=== PATIENT | male | born 1945 | race Caucasian/White ===

== ENCOUNTER 2016-11-09 09:01 | Emergency (ER) | payer OTHER ==
[~2016-11-09] VITALS: Ht 172.7 cm; Wt 75.2 kg
[~2016-11-09 09:01] MED LIST: AMBIEN10 MG PO; ASPIR 8181 M1 PO; ASPIRIN E.C.81 M1 PO; Ambien PO; BENTYL10 MG PO; BUSPAR5 MG PO; CARDIZEM60 MG PO; COREG12.5 MG PO; COREG25 M1 PO; Coreg PO; DESYREL100 MG PO; FLAGYL500 MG PO; FUROSEMIDE20 MG PO; GLIMEPIRIDE2 MG PO; LISINOPRIL5 MG PO; LO-DOSE ASPIRIN81 M2 PO; NAPROXEN500 MG PO; OFEV150 MG PO; PANTOPRAZOLE SO40 MG PO; POTASSIUM CHLO10 ME4 PO; PRAVASTATIN SOD20 MG PO; PRAVASTATIN SOD40 MG PO; PREDNISONE5 MG PO; SYMBICORT; Symbicort 80-4.5 mcg IH; TRAZODONE HCL100 MG PO; TYLENOL REGULA325 MG PO; Tylenol Regular Stre PO; VALIUM2 MG PO; VANCOMYCIN100 MG/M1 IV; WARFARIN SODIUM3 MG PO
[2016-11-09] MEDS ORDERED: CARTIA XT120 MG PO (09:17)
[2016-11-09] MEDS ORDERED: WARFARIN SODIUM5 MG PO (09:18)
[2016-11-09 09:44] LABS: HEMATOCRIT 36.3 % (38.0-50.0); MCH 30.7 PG (29.0-34.0); MCHC 32.2 G/DL (30.0-36.0); MCV 95.3 FL (86-99); MEAN PLAT.VOLUME 9.1 uM^3 (9.0-12.4); PLATELET COUNT 135 K/uL (156-360); RBC DIS.WIDTH-CV 14.1 % (11.8-14.6); RBC DIS.WIDTH-SD 49.5 % (39-53); RED BLOOD COUNT 3.81 M/uL (4.00-5.50); WHITE BLOOD COUNT 3.9 K/uL (4.1-10.2)
[2016-11-09 09:54] LABS: CHLORIDE 105 mEq/L (99-109); POTASSIUM 4.2 mEq/L (3.7-5.4); SODIUM 136 mEq/L (136-147)
[2016-11-09 09:55] LABS: PROTHROMBIN TIME 46.1 (9.2-11.2); PTT 52.4 (25-32)
[2016-11-09 09:56] LABS: GLUCOSE 102 mg/dL (70-99)
[2016-11-09 09:58] LABS: ANION GAP 10 MEQ/L (2-14)
[2016-11-09 10:00] LABS: ALKALINE PHOSPHATASE 168 IU/L (3-129); GFR ESTIMATE (CALCULATED) > 59 mL/min/
[2016-11-09 10:01] LABS: UREA NITROGEN (BUN) 17 mg/dL (9-23)
[2016-11-09 10:03] LABS: LIPASE 23 U/L (1.0-51.0)
[2016-11-09 10:06] LABS: INTER. NORMALIZED RATIO 4.3
[2016-11-09 11:39] LABS: ADD MIUA? YES; BILIRUBIN NEGATIVE; BLOOD LARGE; COLOR YELLOW ((YELLOW)); GLUCOSE (STRIP) NEGATIVE; KETONES NEGATIVE; LEUKOCYTES SMALL; NITRITE NEGATIVE; PROTEIN (STRIP) 30; SPECIFIC GRAVITY 1.015 (1.000-1.030); UROBILINOGEN 0.2 MG/DL (0.2-1.0)
[2016-11-09 11:57] LABS: BACTERIA RARE /HPF; EPITHELIAL CELLS NONE SEEN /HPF; MUCUS TRACE /LPF; RED BLOOD CELLS TNTC /HPF (0-5); UCUL ADDED? YES; WHITE BLOOD CELLS TNTC /HPF (0-5)
[2016-11-09] MEDS ORDERED: ZOFRAN4 MG PO (13:02)
[2016-11-09] MEDS ORDERED: NORCO 5/3251 TABLET PO (13:02)
[2016-11-09] MEDS ORDERED: FLOMAX0.4 MG PO (13:02)
[2016-11-09] MEDS ORDERED: BACTRIM,SEPT1 TABLET PO (13:20)
[2016-11-09 13:33] VITALS: BP 133/71
== END 2016-11-09 13:34 | disposition home or self-care (01) ==
LOC: EME 09:01
PROVIDERS: Physician Assistant
DX: N20.1 Calculus of ureter (principal); N39.0 Urinary tract infection, site not specified; I48.91 Unspecified atrial fibrillation; Z91.19 Patient's noncompliance with other medical treatment and regimen; E11.9 Type 2 diabetes mellitus without complications; J44.9 Chronic obstructive pulmonary disease, unspecified; E78.5 Hyperlipidemia, unspecified; I10 Essential (primary) hypertension; Z87.442 Personal history of urinary calculi; Z79.82 Long term (current) use of aspirin; Z79.84 Long term (current) use of oral hypoglycemic drugs; Z87.891 Personal history of nicotine dependence
CPT/HCPCS: 74176; 80053; 81003; 83690; 85027; 85610; 85730; 87086 GA; 93005; 99281; 99285; J7030

== ENCOUNTER 2016-12-26 08:23 | Emergency (ER) | payer OTHER ==
[~2016-12-26] VITALS: Ht 172.7 cm; Wt 72.6 kg
[~2016-12-26 08:23] MED LIST changes: +BACTRIM,SEPT1 TABLET PO; +CARTIA XT120 MG PO; +FLOMAX0.4 MG PO; +NORCO 5/3251 TABLET PO; +WARFARIN SODIUM5 MG PO; +ZOFRAN4 MG PO
[2016-12-26 09:46] LABS: EOSINOPHIL (%) 9.3 % (0-5); EOSINOPHIL COUNT 0.8 K/uL (0-0.3); HEMATOCRIT 41.8 % (38.0-50.0); IMMATURE GRANULOCYTE (%) 0.4 % (0.0-0.7); INSTRUMENT ABS NEUTROPHIL CT 6.2 K/uL; LYMPHOCYTE COUNT 0.4 K/uL (1.0-2.8); MCH 31.1 PG (29.0-34.0); MCHC 32.8 G/DL (30.0-36.0); MEAN PLAT.VOLUME 9.4 uM^3 (9.0-12.4); MONOCYTE (%) 8.8 % (3-12); MONOCYTE COUNT 0.7 K/uL (0-0.8); NEUTROPHIL (%) 75.7 % (45-76); NEUTROPHIL COUNT 6.2 K/uL (1.8-6.4); PLATELET COUNT 138 K/uL (156-360); RBC DIS.WIDTH-CV 13.2 % (11.8-14.6); RBC DIS.WIDTH-SD 46.5 % (39-53); WHITE BLOOD COUNT 8.2 K/uL (4.1-10.2)
[2016-12-26 09:56] LABS: PROTHROMBIN TIME 11.8 (9.2-11.2)
[2016-12-26 09:57] LABS: INTER. NORMALIZED RATIO 1.2
[2016-12-26 09:58] LABS: CHLORIDE 104 mEq/L (99-109); POTASSIUM 4.2 mEq/L (3.7-5.4); SODIUM 136 mEq/L (136-147)
[2016-12-26 09:59] LABS: BASE EXCESS 1.3 mEq/L (-3 to +3); CARBOXY HGB 2.1 % (0-5); METHEMOGLOBIN 1.3 % (0-1.5); PCO2 36 mm Hg (35-45); pH 7.45 (7.35-7.45)
[2016-12-26 10:00] LABS: COMMENTS - BLOOD GASES A+C+; O2 FLOW 1.5 L/MIN; PO2 98 mm Hg (80-100); SITE RR
[2016-12-26 10:01] LABS: DEVICE NC
[2016-12-26 10:01] LABS: ANION GAP 11 MEQ/L (2-14)
[2016-12-26 10:04] LABS: ALKALINE PHOSPHATASE 157 IU/L (3-129); GFR ESTIMATE (CALCULATED) > 59 mL/min/
[2016-12-26 10:04] LABS: ADD MIUA? YES; BILIRUBIN NEGATIVE; BLOOD MODERATE; COLOR YELLOW ((YELLOW)); GLUCOSE (STRIP) NEGATIVE; KETONES NEGATIVE; LEUKOCYTES TRACE; NITRITE NEGATIVE; PROTEIN (STRIP) 30; SPECIFIC GRAVITY 1.016 (1.000-1.030); UROBILINOGEN 0.2 MG/DL (0.2-1.0)
[2016-12-26 10:05] LABS: UREA NITROGEN (BUN) 16 mg/dL (9-23)
[2016-12-26 10:06] LABS: DIRECT BILIRUBIN 0.4 mg/dL (0.0-0.3)
[2016-12-26 10:07] LABS: LIPASE 28 U/L (1.0-51.0)
[2016-12-26 10:09] LABS: TROP-I INTERPRETATION NEGATIVE; TROPONIN-I 0.01 ng/mL (0.0-0.30)
[2016-12-26 10:16] LABS: GLUCOSE 75 mg/dL (70-99)
[2016-12-26 10:21] LABS: BACTERIA RARE /HPF; EPITHELIAL CELLS RARE /HPF; MUCUS TRACE /LPF; RED BLOOD CELLS 30-40 /HPF (0-5); UCUL ADDED? NO; WHITE BLOOD CELLS 20-30 /HPF (0-5)
[2016-12-26] MEDS ORDERED: CIPRO500 MG PO (12:39)
[2016-12-26] MEDS ORDERED: VENTOLIN HFA18 GM IH (12:39)
[2016-12-26 15:05] VITALS: BP 116/70
== END 2016-12-26 15:09 | disposition left against medical advice (07) ==
LOC: EME 08:23
PROVIDERS: Nurse Practitioner Family
DX: N39.0 Urinary tract infection, site not specified (principal); J44.1 Chronic obstructive pulmonary disease with (acute) exacerbation; J45.901 Unspecified asthma with (acute) exacerbation; R09.02 Hypoxemia; I11.0 Hypertensive heart disease with heart failure; I50.9 Heart failure, unspecified; E11.9 Type 2 diabetes mellitus without complications; E78.5 Hyperlipidemia, unspecified; Z87.891 Personal history of nicotine dependence; Z87.442 Personal history of urinary calculi
CPT/HCPCS: 36600; 71020; 71275; 80053; 81003; 82248; 82803; 83605; 83690; 83880; 84484; 85025; 85610; 85730; 87040; 93005; 94640; 99281; 99285; J0744; J2930

== ENCOUNTER 2016-12-28 05:47 | Inpatient (IN) | payer OTHER ==
[~2016-12-28] VITALS: Ht 172.7 cm; Wt 78.0 kg
[~2016-12-28 05:47] MED LIST changes: +CIPRO500 MG PO; +VENTOLIN HFA18 GM IH
[2016-12-28 06:32] LABS: EOSINOPHIL (%) 9.6 % (0-5); IMMATURE GRANULOCYTE (%) 0.7 % (0.0-0.7); IMMATURE GRANULOCYTE COUNT 0.1 K/uL; INSTRUMENT ABS NEUTROPHIL CT 7.7 K/uL; LYMPHOCYTE COUNT 0.6 K/uL (1.0-2.8); MCHC 32.3 G/DL (30.0-36.0); MCV 95.8 FL (86-99); MEAN PLAT.VOLUME 8.9 uM^3 (9.0-12.4); MONOCYTE (%) 5.5 % (3-12); MONOCYTE COUNT 0.5 K/uL (0-0.8); NEUTROPHIL (%) 77.4 % (45-76); NEUTROPHIL COUNT 7.7 K/uL (1.8-6.4); PLATELET COUNT 137 K/uL (156-360); RBC DIS.WIDTH-CV 13.4 % (11.8-14.6); RBC DIS.WIDTH-SD 48.5 % (39-53); RED BLOOD COUNT 4.07 M/uL (4.00-5.50); WHITE BLOOD COUNT 9.9 K/uL (4.1-10.2)
[2016-12-28 06:38] LABS: ADD MIUA? YES; BILIRUBIN NEGATIVE; BLOOD MODERATE; COLOR YELLOW ((YELLOW)); GLUCOSE (STRIP) NEGATIVE; KETONES NEGATIVE; LEUKOCYTES TRACE; NITRITE NEGATIVE; PROTEIN (STRIP) NEGATIVE; SPECIFIC GRAVITY 1.021 (1.000-1.030); UROBILINOGEN 0.2 MG/DL (0.2-1.0)
[2016-12-28 06:40] LABS: INTER. NORMALIZED RATIO 1.2; PROTHROMBIN TIME 12.1 (9.2-11.2)
[2016-12-28 06:43] LABS: CHLORIDE 108 mEq/L (99-109); POTASSIUM 3.7 mEq/L (3.7-5.4); SODIUM 140 mEq/L (136-147)
[2016-12-28 06:45] LABS: GLUCOSE 53 mg/dL (70-99)
[2016-12-28 06:47] LABS: ANION GAP 10 MEQ/L (2-14)
[2016-12-28 06:49] LABS: ALKALINE PHOSPHATASE 150 IU/L (3-129); GFR ESTIMATE (CALCULATED) > 59 mL/min/
[2016-12-28 06:50] LABS: TOTAL BILIRUBIN 0.7 mg/dL (0.0-1.0); UREA NITROGEN (BUN) 22 mg/dL (9-23)
[2016-12-28 06:50] LABS: BACTERIA NONE SEEN /HPF; EPITHELIAL CELLS NONE SEEN /HPF; MUCUS TRACE /LPF; RED BLOOD CELLS 40-50 /HPF (0-5); UCUL ADDED? NO
[2016-12-28] MEDS ORDERED: FUROSEMIDE20 MG PO (09:33)
[2016-12-28] MEDS ORDERED: PANTOPRAZOLE SO40 MG PO (09:36)
[2016-12-28] MEDS ORDERED: PRAVASTATIN SOD40 MG PO (09:36)
[2016-12-28] MEDS ORDERED: PRAVASTATIN SOD20 MG PO (09:37)
[2016-12-28] MEDS ORDERED: WARFARIN SODIUM1 MG PO (09:38)
[2016-12-28] MEDS ORDERED: KLOR-CON M1010 MEQ PO (09:39)
[2016-12-28] MEDS ORDERED: BACLOFEN10 MG PO (09:40)
[2016-12-28] MEDS ORDERED: KENALOG,ARISTOC15 G1 TP (09:40)
[2016-12-28] MEDS ORDERED: MACROBID100 MG PO (09:40)
[2016-12-28] MEDS ORDERED: DIGITEK125 MC2 PO (09:40)
[2016-12-28] MEDS ORDERED: CIPROFLOXACIN500 M1 PO (09:56)
[2016-12-28 18:14] VITALS: BP 157/71
[2016-12-28 18:52] LABS: POINT-OF-CARE METER ID UU14174225
[2016-12-28 19:51] VITALS: BP 133/62
[2016-12-28 23:49] VITALS: BP 119/59
[2016-12-29 03:27] VITALS: BP 117/64
[2016-12-29 07:07] LABS: ANION GAP 10 MEQ/L (2-14); CHLORIDE 106 MEQ/L (99-109); GFR ESTIMATE (CALCULATED) > 59 mL/min/; POTASSIUM 4.1 MEQ/L (3.7-5.4); SAMPLE HEMOLYSIS CHECK 0; SAMPLE ICTERIC CHECK 0; SAMPLE LIPEMIA CHECK 0; SODIUM 137 MEQ/L (136-147); UREA NITROGEN (BUN) 21 mg/dL (9-23)
[2016-12-29 07:09] LABS: HEMATOCRIT 34.5 % (38.0-50.0); MCH 31.8 PG (29.0-34.0); MCHC 32.8 G/DL (30.0-36.0); MCV 97.2 FL (86-99); RBC DIS.WIDTH-CV 13.8 % (11.8-14.6); RBC DIS.WIDTH-SD 49.3 % (39-53); RED BLOOD COUNT 3.55 M/uL (4.00-5.50)
[2016-12-29 07:10] LABS: GLUCOSE 167 mg/dL (70-99)
[2016-12-29 07:18] LABS: WHITE BLOOD COUNT 3.2 K/uL (4.1-10.2)
[2016-12-29 07:19] LABS: INTER. NORMALIZED RATIO 1.3; PROTHROMBIN TIME 13.5 (9.2-11.2)
[2016-12-29 07:25] LABS: POINT-OF-CARE METER ID UU14174225
[2016-12-29 07:29] LABS: MEAN PLAT.VOLUME 9.8 uM^3 (9.0-12.4); PLAT.SUFFICIENCY DECREASED
[2016-12-29 07:39] LABS: PLATELET COUNT 94 K/uL (156-360)
[2016-12-29 08:03] VITALS: BP 116/71
[2016-12-29 11:25] VITALS: BP 134/74
[2016-12-29 12:14] LABS: POINT-OF-CARE METER ID UU14174225
[2016-12-29 15:38] VITALS: BP 100/54
[2016-12-29 20:05] VITALS: BP 110/57
[2016-12-29 21:37] LABS: POINT-OF-CARE METER ID UU14188625
[2016-12-30] VITALS (7 sets, daily range): BP systolic 105–138; BP diastolic 55–74
[2016-12-30 06:15] LABS: EOSINOPHIL (%) 0 % (0-5); HEMATOCRIT 35.2 % (38.0-50.0); IMMATURE GRANULOCYTE (%) 0.9 % (0.0-0.7); IMMATURE GRANULOCYTE COUNT 0.1 K/uL; INSTRUMENT ABS NEUTROPHIL CT 4.7 K/uL; LYMPHOCYTE COUNT 0.6 K/uL (1.0-2.8); MCH 31.5 PG (29.0-34.0); MCV 95.7 FL (86-99); MEAN PLAT.VOLUME 9.8 uM^3 (9.0-12.4); MONOCYTE (%) 4.5 % (3-12); MONOCYTE COUNT 0.3 K/uL (0-0.8); NEUTROPHIL (%) 84.3 % (45-76); NEUTROPHIL COUNT 4.7 K/uL (1.8-6.4); PLATELET COUNT 105 K/uL (156-360); RBC DIS.WIDTH-CV 13.7 % (11.8-14.6); RBC DIS.WIDTH-SD 48.6 % (39-53); RED BLOOD COUNT 3.68 M/uL (4.00-5.50)
[2016-12-30 06:17] LABS: WHITE BLOOD COUNT 5.5 K/uL (4.1-10.2)
[2016-12-30 07:26] LABS: INTER. NORMALIZED RATIO 1.9; PROTHROMBIN TIME 19.5 (9.2-11.2)
[2016-12-30 08:22] LABS: POINT-OF-CARE METER ID UU14188625
[2016-12-30 16:30] LABS: POINT-OF-CARE METER ID UU14174225
[2016-12-31 03:46] VITALS: BP 123/71
[2016-12-31 09:03] VITALS: BP 113/62
[2016-12-31 10:45] LABS: INTER. NORMALIZED RATIO 3.6; PROTHROMBIN TIME 38.5 (9.2-11.2)
[2016-12-31 12:47] VITALS: BP 141/71
[2016-12-31 20:02] VITALS: BP 134/70
[2016-12-31 23:59] VITALS: BP 127/60
[2017-01-01 03:57] VITALS: BP 129/56
[2017-01-01 06:36] LABS: HEMATOCRIT 35.9 % (38.0-50.0); MCHC 34.3 G/DL (30.0-36.0); MCV 93.5 FL (86-99); MEAN PLAT.VOLUME 9.5 uM^3 (9.0-12.4); PLATELET COUNT 132 K/uL (156-360); RBC DIS.WIDTH-CV 13.7 % (11.8-14.6); RED BLOOD COUNT 3.84 M/uL (4.00-5.50)
[2017-01-01 06:40] LABS: WHITE BLOOD COUNT 8.3 K/uL (4.1-10.2)
[2017-01-01 06:42] LABS: INTER. NORMALIZED RATIO 2.9
[2017-01-01 07:09] LABS: ANION GAP 7 MEQ/L (2-14); CHLORIDE 98 MEQ/L (99-109); GFR ESTIMATE (CALCULATED) > 59 mL/min/; POTASSIUM 3.4 MEQ/L (3.7-5.4); SAMPLE HEMOLYSIS CHECK 0; SAMPLE ICTERIC CHECK 0; SAMPLE LIPEMIA CHECK 0; SODIUM 134 MEQ/L (136-147); UREA NITROGEN (BUN) 24 mg/dL (9-23)
[2017-01-01 07:10] LABS: GLUCOSE 83 mg/dL (70-99)
[2017-01-01 08:23] VITALS: BP 140/65
[2017-01-01 11:02] VITALS: BP 137/64
[2017-01-01 16:43] VITALS: BP 124/62
[2017-01-01 19:42] VITALS: BP 127/58
[2017-01-01 23:36] VITALS: BP 131/65
[2017-01-02 04:14] VITALS: BP 137/65
[2017-01-02 07:54] LABS: HEMATOCRIT 38.9 % (38.0-50.0); MCH 30.6 PG (29.0-34.0); MCHC 32.9 G/DL (30.0-36.0); MCV 93.1 FL (86-99); MEAN PLAT.VOLUME 9.8 uM^3 (9.0-12.4); PLATELET COUNT 157 K/uL (156-360); RBC DIS.WIDTH-CV 13.8 % (11.8-14.6); RBC DIS.WIDTH-SD 47.3 % (39-53); RED BLOOD COUNT 4.18 M/uL (4.00-5.50)
[2017-01-02 08:02] LABS: INTER. NORMALIZED RATIO 2.4
[2017-01-02 08:23] LABS: ANION GAP 13 MEQ/L (2-14); CHLORIDE 95 MEQ/L (99-109); POTASSIUM 3.5 MEQ/L (3.7-5.4); SAMPLE HEMOLYSIS CHECK 0; SAMPLE ICTERIC CHECK 0; SAMPLE LIPEMIA CHECK 0; SODIUM 137 MEQ/L (136-147)
[2017-01-02 08:28] LABS: GFR ESTIMATE (CALCULATED) > 59 mL/min/; GLUCOSE 73 mg/dL (70-99); UREA NITROGEN (BUN) 26 mg/dL (9-23)
[2017-01-02 08:31] VITALS: BP 131/63
[2017-01-02 11:59] VITALS: BP 128/59
[2017-01-02 15:54] VITALS: BP 102/64
[2017-01-02 20:00] VITALS: BP 119/63
[2017-01-03] VITALS: BP 121/63
[2017-01-03 03:53] VITALS: BP 123/60
[2017-01-03 07:21] LABS: HEMATOCRIT 39.2 % (38.0-50.0); MCH 31.3 PG (29.0-34.0); MCHC 33.2 G/DL (30.0-36.0); MCV 94.5 FL (86-99); PLATELET COUNT 161 K/uL (156-360); RBC DIS.WIDTH-CV 13.7 % (11.8-14.6); RBC DIS.WIDTH-SD 47.8 % (39-53); RED BLOOD COUNT 4.15 M/uL (4.00-5.50); WHITE BLOOD COUNT 6.9 K/uL (4.1-10.2)
[2017-01-03 07:32] LABS: INTER. NORMALIZED RATIO 2.7; PROTHROMBIN TIME 28.8 (9.2-11.2)
[2017-01-03 08:00] VITALS: BP 105/70
[2017-01-03 08:05] LABS: ALKALINE PHOSPHATASE 185 IU/L (3-129); ANION GAP 10 MEQ/L (2-14); CHLORIDE 95 MEQ/L (99-109); GFR ESTIMATE (CALCULATED) > 59 mL/min/; POTASSIUM 4.1 MEQ/L (3.7-5.4); SAMPLE HEMOLYSIS CHECK 0; SAMPLE ICTERIC CHECK 0; SAMPLE LIPEMIA CHECK 0; SODIUM 137 MEQ/L (136-147); UREA NITROGEN (BUN) 26 mg/dL (9-23)
[2017-01-03 08:07] LABS: GLUCOSE 100 mg/dL (70-99)
[2017-01-03] MEDS ORDERED: ACYCLOVIR800 MG PO (11:49)
[2017-01-03] MEDS ORDERED: PREDNISONE10 MG PO (11:49)
[2017-01-03] MEDS ORDERED: DOXYCYCLINE HY100 MG PO (11:49)
[2017-01-03] MEDS ORDERED: WARFARIN SODIU2.5 MG PO ×2 (12:28→12:52)
[2017-01-03 12:29] VITALS: BP 128/59
[2017-01-03 15:35] VITALS: BP 105/64
== END 2017-01-03 18:23 | disposition home health service (06) | DRG 871 ==
LOC: EME → EDBD 05:47 → 5SOUTH 11:56 → EDOF 11:56 → 5SOUTH 17:28
PROVIDERS: Emergency Medicine; Hospitalist; Internal Medicine; Nurse Practitioner Adult Health; Physician Assistant Medical
DX: A41.9 Sepsis, unspecified organism (principal); I50.33 Acute on chronic diastolic (congestive) heart failure; E87.3 Alkalosis; E87.1 Hypo-osmolality and hyponatremia; I11.0 Hypertensive heart disease with heart failure; I27.2 Other secondary pulmonary hypertension; J13 Pneumonia due to Streptococcus pneumoniae; J44.0 Chronic obstructive pulmonary disease with (acute) lower respiratory infection; B02.9 Zoster without complications; E11.9 Type 2 diabetes mellitus without complications; I25.10 Atherosclerotic heart disease of native coronary artery without angina pectoris; I48.2 Chronic atrial fibrillation; J84.10 Pulmonary fibrosis, unspecified; Z79.52 Long term (current) use of systemic steroids; E78.5 Hyperlipidemia, unspecified; N30.00 Acute cystitis without hematuria; J44.1 Chronic obstructive pulmonary disease with (acute) exacerbation; R09.02 Hypoxemia; Z95.2 Presence of prosthetic heart valve; Z87.891 Personal history of nicotine dependence; R65.20 Severe sepsis without septic shock; E87.6 Hypokalemia
CPT/HCPCS: 36600; 71010; 71020; 71275; 80048; 80053; 81003; 82248; 82803; 82948; 83605; 83690; 83880; 84484; 85025; 85027; 85610; 85730; 87040; 87086; 93005; 94640; 94640 76; 94799; 99202; 99281; 99285; J0696; J0744; J1650; J1815; J1940; J2920; J2930; J7030; J7050; J7512

== ENCOUNTER 2017-02-02 12:32 | Inpatient (IN) | payer OTHER ==
[~2017-02-02] VITALS: Ht 172.7 cm; Wt 69.0 kg
[~2017-02-02 12:32] MED LIST changes: +ACYCLOVIR800 MG PO; +BACLOFEN10 MG PO; +CIPROFLOXACIN500 M1 PO; +DIGITEK125 MC2 PO; +DOXYCYCLINE HY100 MG PO; +KENALOG,ARISTOC15 G1 TP; +KLOR-CON M1010 MEQ PO; +MACROBID100 MG PO; +PREDNISONE10 MG PO; +WARFARIN SODIU2.5 MG PO; +WARFARIN SODIUM1 MG PO
[2017-02-02 13:28] LABS: ADD MIUA? YES; BILIRUBIN NEGATIVE; BLOOD MODERATE; COLOR YELLOW ((YELLOW)); GLUCOSE (STRIP) NEGATIVE; KETONES 5; LEUKOCYTES TRACE; NITRITE NEGATIVE; PROTEIN (STRIP) 30; SPECIFIC GRAVITY 1.017 (1.000-1.030); UROBILINOGEN 0.2 MG/DL (0.2-1.0)
[2017-02-02 13:31] LABS: BACTERIA RARE /HPF; EPITHELIAL CELLS RARE /HPF; HYALINE CASTS 0-5 /LPF; MUCUS 2+ /LPF; RED BLOOD CELLS TNTC /HPF (0-5); UCUL ADDED? NO; WHITE BLOOD CELLS 20-30 /HPF (0-5)
[2017-02-02 13:44] LABS: EOSINOPHIL (%) 1.3 % (0-5); EOSINOPHIL COUNT 0.1 K/uL (0-0.3); HEMATOCRIT 34.9 % (38.0-50.0); IMMATURE GRANULOCYTE (%) 0.8 % (0.0-0.7); IMMATURE GRANULOCYTE COUNT 0.1 K/uL; INSTRUMENT ABS NEUTROPHIL CT 7.3 K/uL; LYMPHOCYTE COUNT 0.6 K/uL (1.0-2.8); MCHC 32.4 G/DL (30.0-36.0); MCV 95.6 FL (86-99); MEAN PLAT.VOLUME 9.5 uM^3 (9.0-12.4); MONOCYTE (%) 10.8 % (3-12); NEUTROPHIL (%) 80.1 % (45-76); NEUTROPHIL COUNT 7.3 K/uL (1.8-6.4); PLATELET COUNT 175 K/uL (156-360); RBC DIS.WIDTH-CV 14.6 % (11.8-14.6); RBC DIS.WIDTH-SD 51.4 % (39-53); RED BLOOD COUNT 3.65 M/uL (4.00-5.50); WHITE BLOOD COUNT 9.1 K/uL (4.1-10.2)
[2017-02-02 13:52] LABS: CHLORIDE 101 mEq/L (99-109); POTASSIUM 3.7 mEq/L (3.7-5.4); SODIUM 137 mEq/L (136-147)
[2017-02-02 13:54] LABS: GLUCOSE 100 mg/dL (70-99)
[2017-02-02 13:55] LABS: ANION GAP 10 MEQ/L (2-14)
[2017-02-02 13:57] LABS: ALKALINE PHOSPHATASE 203 IU/L (3-129)
[2017-02-02 13:58] LABS: GFR ESTIMATE (CALCULATED) > 59 mL/min/
[2017-02-02 13:59] LABS: UREA NITROGEN (BUN) 16 mg/dL (9-23)
[2017-02-02 14:07] LABS: TROP-I INTERPRETATION NEGATIVE; TROPONIN-I < 0.01 ng/mL (0.0-0.30)
[2017-02-02 18:31] VITALS: BP 120/67
[2017-02-02 18:47] LABS: INTER. NORMALIZED RATIO 1.8; PROTHROMBIN TIME 18.5 (9.2-11.2)
[2017-02-02 21:11] LABS: TROP-I INTERPRETATION NEGATIVE; TROPONIN-I 0.02 ng/mL (0.0-0.30)
[2017-02-02 23:25] VITALS: BP 108/58
[2017-02-03 02:21] LABS: TROP-I INTERPRETATION NEGATIVE; TROPONIN-I < 0.01 ng/mL (0.0-0.30)
[2017-02-03 06:51] LABS: HEMATOCRIT 34.4 % (38.0-50.0); MCH 31.7 PG (29.0-34.0); MCHC 32.8 G/DL (30.0-36.0); MCV 96.4 FL (86-99); MEAN PLAT.VOLUME 9.4 uM^3 (9.0-12.4); PLATELET COUNT 147 K/uL (156-360); RBC DIS.WIDTH-CV 14.4 % (11.8-14.6); RBC DIS.WIDTH-SD 51.6 % (39-53); RED BLOOD COUNT 3.57 M/uL (4.00-5.50); WHITE BLOOD COUNT 4.9 K/uL (4.1-10.2)
[2017-02-03 07:16] LABS: ANION GAP 8 MEQ/L (2-14); CHLORIDE 102 MEQ/L (99-109); GFR ESTIMATE (CALCULATED) > 59 mL/min/; GLUCOSE 149 mg/dL (70-99); POTASSIUM 4.1 MEQ/L (3.7-5.4); SAMPLE HEMOLYSIS CHECK 0; SAMPLE ICTERIC CHECK 0; SAMPLE LIPEMIA CHECK 0; SODIUM 140 MEQ/L (136-147); UREA NITROGEN (BUN) 17 mg/dL (9-23)
[2017-02-03 07:38] LABS: INTER. NORMALIZED RATIO 1.9; PROTHROMBIN TIME 19.6 (9.2-11.2)
[2017-02-03 08:40] VITALS: BP 103/52
[2017-02-03 13:19] LABS: POINT-OF-CARE METER ID UU13113717; POINT-OF-CARE USER ID STWAMT
[2017-02-03 17:49] LABS: POINT-OF-CARE METER ID UU13113717; POINT-OF-CARE USER ID STWAMT
[2017-02-03 17:57] VITALS: BP 98/54
[2017-02-03 20:00] VITALS: BP 116/54
[2017-02-03 20:17] VITALS: BP 101/52
[2017-02-04 00:07] VITALS: BP 101/56
[2017-02-04 03:58] VITALS: BP 109/53
[2017-02-04 06:00] LABS: HEMATOCRIT 31.3 % (38.0-50.0); MCH 31.6 PG (29.0-34.0); MCHC 32.6 G/DL (30.0-36.0); MCV 96.9 FL (86-99); MEAN PLAT.VOLUME 9.6 uM^3 (9.0-12.4); PLATELET COUNT 142 K/uL (156-360); RBC DIS.WIDTH-CV 14.6 % (11.8-14.6); RBC DIS.WIDTH-SD 51.8 % (39-53); RED BLOOD COUNT 3.23 M/uL (4.00-5.50); WHITE BLOOD COUNT 6.9 K/uL (4.1-10.2)
[2017-02-04 06:11] LABS: INTER. NORMALIZED RATIO 2.9
[2017-02-04 06:53] LABS: PROTHROMBIN TIME 30.1 (9.2-11.2)
[2017-02-04 08:05] VITALS: BP 129/61
[2017-02-04 11:17] VITALS: BP 148/70
[2017-02-04 12:10] LABS: POINT-OF-CARE METER ID UU13113717
[2017-02-04 15:22] VITALS: BP 135/69
[2017-02-04 17:38] LABS: POINT-OF-CARE METER ID UU14174225
[2017-02-05 00:12] VITALS: BP 107/64
[2017-02-05 03:42] VITALS: BP 106/53
[2017-02-05 05:39] LABS: HEMATOCRIT 34.1 % (38.0-50.0); MCH 30.6 PG (29.0-34.0); MCHC 32.3 G/DL (30.0-36.0); MEAN PLAT.VOLUME 9.4 uM^3 (9.0-12.4); PLATELET COUNT 146 K/uL (156-360); RBC DIS.WIDTH-CV 13.9 % (11.8-14.6); RBC DIS.WIDTH-SD 48.7 % (39-53); RED BLOOD COUNT 3.59 M/uL (4.00-5.50); WHITE BLOOD COUNT 5.2 K/uL (4.1-10.2)
[2017-02-05 05:53] LABS: INTER. NORMALIZED RATIO 3.7; PROTHROMBIN TIME 39.6 (9.2-11.2)
[2017-02-05 06:31] LABS: ANION GAP 8 MEQ/L (2-14); CHLORIDE 95 MEQ/L (99-109); GFR ESTIMATE (CALCULATED) > 59 mL/min/; GLUCOSE 149 mg/dL (70-99); POTASSIUM 3.9 MEQ/L (3.7-5.4); SAMPLE HEMOLYSIS CHECK 0; SAMPLE ICTERIC CHECK 0; SAMPLE LIPEMIA CHECK 0; SODIUM 134 MEQ/L (136-147); UREA NITROGEN (BUN) 18 mg/dL (9-23)
[2017-02-05 07:47] VITALS: BP 121/62
[2017-02-05 11:12] VITALS: BP 106/55
[2017-02-05 15:07] VITALS: BP 107/55
[2017-02-05 20:00] VITALS: BP 97/52
[2017-02-06] VITALS (17 sets, daily range): BP systolic 97–127; BP diastolic 44–66
[2017-02-06 06:09] LABS: PROTHROMBIN TIME 49.8 (9.2-11.2)
[2017-02-06 06:16] LABS: INTER. NORMALIZED RATIO 4.7
[2017-02-06 08:37] LABS: BASE EXCESS 7.4 mEq/L (-3 to +3); CARBOXY HGB 1.9 % (0-5); METHEMOGLOBIN 1.9 % (0-1.5); pH 7.47 (7.35-7.45)
[2017-02-06 08:38] LABS: COMMENTS - BLOOD GASES A+C+; DEVICE NCH; O2 FLOW 15 L/MIN; PCO2 44 mm Hg (35-45); PO2 29 mm Hg (80-100); SITE RR
[2017-02-06 08:39] LABS: TOTAL RESP RATE 55 resp/min
[2017-02-06 11:18] LABS: BASE EXCESS 7.6 mEq/L (-3 to +3); BICARBONATE 32.7 mEq/L (22-26); CARBOXY HGB 2.2 % (0-5); COMMENTS - BLOOD GASES A+C+; DEVICE NRB MASK; FI02 100 %; O2 FLOW 15 L/MIN; PCO2 47 mm Hg (35-45); PO2 93 mm Hg (80-100); SITE RR; pH 7.45 (7.35-7.45)
[2017-02-06 11:19] LABS: TOTAL RESP RATE 26 resp/min
[2017-02-06 11:47] LABS: METH RESISTANT S AUREUS PCR NEGATIVE (NEGATIVE); PROBE CHECK PASS; SPECIMEN PROCESSING CONTROL PASS
[2017-02-06 12:53] LABS: POINT-OF-CARE METER ID UU14174217; POINT-OF-CARE USER ID AGYTJR
[2017-02-06 13:21] LABS: GFR ESTIMATE (CALCULATED) > 59 mL/min/; UREA NITROGEN (BUN) 24 mg/dL (9-23)
[2017-02-07] VITALS (12 sets, daily range): BP systolic 92–117; BP diastolic 45–58
[2017-02-07 05:44] LABS: EOSINOPHIL (%) 0 % (0-5); HEMATOCRIT 31.1 % (38.0-50.0); IMMATURE GRANULOCYTE (%) 1.5 % (0.0-0.7); IMMATURE GRANULOCYTE COUNT 0.1 K/uL; INSTRUMENT ABS NEUTROPHIL CT 5.3 K/uL; LYMPHOCYTE COUNT 0.4 K/uL (1.0-2.8); MCHC 32.8 G/DL (30.0-36.0); MCV 94.5 FL (86-99); MEAN PLAT.VOLUME 9.4 uM^3 (9.0-12.4); MONOCYTE (%) 4.2 % (3-12); MONOCYTE COUNT 0.3 K/uL (0-0.8); NEUTROPHIL (%) 88.3 % (45-76); NEUTROPHIL COUNT 5.3 K/uL (1.8-6.4); PLATELET COUNT 138 K/uL (156-360); RBC DIS.WIDTH-CV 14.2 % (11.8-14.6); RBC DIS.WIDTH-SD 49.3 % (39-53); RED BLOOD COUNT 3.29 M/uL (4.00-5.50)
[2017-02-07 06:13] LABS: ANION GAP 8 MEQ/L (2-14); CHLORIDE 98 MEQ/L (99-109); GFR ESTIMATE (CALCULATED) > 59 mL/min/; GLUCOSE 167 mg/dL (70-99); MAGNESIUM 1.9 mg/dl (1.3-2.7); POTASSIUM 3.6 MEQ/L (3.7-5.4); SAMPLE HEMOLYSIS CHECK 0; SAMPLE ICTERIC CHECK 0; SAMPLE LIPEMIA CHECK 0; SODIUM 138 MEQ/L (136-147); UREA NITROGEN (BUN) 21 mg/dL (9-23)
[2017-02-07 06:24] LABS: INTER. NORMALIZED RATIO 3.4; PROTHROMBIN TIME 36.2 (9.2-11.2)
[2017-02-08 03:00] VITALS: BP 100/58
[2017-02-08 05:59] LABS: EOSINOPHIL (%) 0 % (0-5); HEMATOCRIT 32.2 % (38.0-50.0); IMMATURE GRANULOCYTE (%) 1.3 % (0.0-0.7); IMMATURE GRANULOCYTE COUNT 0.1 K/uL; INSTRUMENT ABS NEUTROPHIL CT 7.2 K/uL; LYMPHOCYTE COUNT 0.4 K/uL (1.0-2.8); MCH 32.1 PG (29.0-34.0); MCHC 33.5 G/DL (30.0-36.0); MCV 95.8 FL (86-99); MEAN PLAT.VOLUME 9.8 uM^3 (9.0-12.4); MONOCYTE (%) 5.9 % (3-12); MONOCYTE COUNT 0.5 K/uL (0-0.8); NEUTROPHIL (%) 87.9 % (45-76); NEUTROPHIL COUNT 7.2 K/uL (1.8-6.4); PLATELET COUNT 146 K/uL (156-360); RBC DIS.WIDTH-CV 14.3 % (11.8-14.6); RED BLOOD COUNT 3.36 M/uL (4.00-5.50); WHITE BLOOD COUNT 8.3 K/uL (4.1-10.2)
[2017-02-08 06:26] LABS: ANION GAP 9 MEQ/L (2-14); CHLORIDE 100 MEQ/L (99-109); GFR ESTIMATE (CALCULATED) > 59 mL/min/; GLUCOSE 171 mg/dL (70-99); INTER. NORMALIZED RATIO 3.4; POTASSIUM 3.7 MEQ/L (3.7-5.4); PROTHROMBIN TIME 36.1 (9.2-11.2); SAMPLE HEMOLYSIS CHECK 0; SAMPLE ICTERIC CHECK 0; SAMPLE LIPEMIA CHECK 0; SODIUM 138 MEQ/L (136-147); UREA NITROGEN (BUN) 31 mg/dL (9-23)
[2017-02-08 06:31] LABS: ANION GAP 8 MEQ/L (2-14); CHLORIDE 99 MEQ/L (99-109); GFR ESTIMATE (CALCULATED) > 59 mL/min/; GLUCOSE 171 mg/dL (70-99); POTASSIUM 3.6 MEQ/L (3.7-5.4); SAMPLE HEMOLYSIS CHECK 0; SAMPLE ICTERIC CHECK 0; SAMPLE LIPEMIA CHECK 0; SODIUM 139 MEQ/L (136-147); UREA NITROGEN (BUN) 31 mg/dL (9-23)
[2017-02-08 08:00] VITALS: BP 121/58
[2017-02-08 10:29] LABS: C DIFF TOXIN NEGATIVE (NEGATIVE)
[2017-02-08 10:32] LABS: PROBE CHECK PASS; SPECIMEN PROCESSING CONTROL PASS
[2017-02-08 12:00] VITALS: BP 113/65
[2017-02-08 16:00] VITALS: BP 123/58
[2017-02-08 20:00] VITALS: BP 117/71
[2017-02-09] VITALS: BP 125/68
[2017-02-09 04:00] VITALS: BP 116/70
[2017-02-09 05:45] LABS: EOSINOPHIL (%) 0 % (0-5); HEMATOCRIT 33.6 % (38.0-50.0); IMMATURE GRANULOCYTE (%) 2.4 % (0.0-0.7); IMMATURE GRANULOCYTE COUNT 0.2 K/uL; INSTRUMENT ABS NEUTROPHIL CT 8.2 K/uL; LYMPHOCYTE COUNT 0.2 K/uL (1.0-2.8); MCHC 32.4 G/DL (30.0-36.0); MCV 95.5 FL (86-99); MEAN PLAT.VOLUME 9.3 uM^3 (9.0-12.4); MONOCYTE (%) 4.6 % (3-12); MONOCYTE COUNT 0.4 K/uL (0-0.8); NEUTROPHIL (%) 90.3 % (45-76); NEUTROPHIL COUNT 8.2 K/uL (1.8-6.4); PLATELET COUNT 125 K/uL (156-360); RBC DIS.WIDTH-CV 14.4 % (11.8-14.6); RBC DIS.WIDTH-SD 49.9 % (39-53); RED BLOOD COUNT 3.52 M/uL (4.00-5.50); WHITE BLOOD COUNT 9.1 K/uL (4.1-10.2)
[2017-02-09 06:12] LABS: PROTHROMBIN TIME 31.7 (9.2-11.2)
[2017-02-09 06:32] LABS: ANION GAP 9 MEQ/L (2-14); CHLORIDE 98 MEQ/L (99-109); GFR ESTIMATE (CALCULATED) > 59 mL/min/; GLUCOSE 210 mg/dL (70-99); MAGNESIUM 2.1 mg/dl (1.3-2.7); POTASSIUM 3.9 MEQ/L (3.7-5.4); SAMPLE HEMOLYSIS CHECK 0; SAMPLE ICTERIC CHECK 0; SAMPLE LIPEMIA CHECK 0; SODIUM 141 MEQ/L (136-147); UREA NITROGEN (BUN) 29 mg/dL (9-23)
[2017-02-09 06:34] LABS: VANCOMYCIN, TROUGH 10.2 MCG/ML (10-20)
[2017-02-09 08:41] VITALS: BP 125/59
[2017-02-09 16:11] VITALS: BP 118/60
[2017-02-09 20:59] VITALS: BP 139/44
[2017-02-09 23:01] VITALS: BP 151/76
[2017-02-10 08:04] LABS: EOSINOPHIL (%) 0 % (0-5); HEMATOCRIT 33.9 % (38.0-50.0); IMMATURE GRANULOCYTE (%) 3.8 % (0.0-0.7); IMMATURE GRANULOCYTE COUNT 0.5 K/uL; INSTRUMENT ABS NEUTROPHIL CT 10.3 K/uL; LYMPHOCYTE COUNT 0.4 K/uL (1.0-2.8); MCH 31.9 PG (29.0-34.0); MCV 96.6 FL (86-99); MEAN PLAT.VOLUME 10.3 uM^3 (9.0-12.4); MONOCYTE (%) 4.9 % (3-12); MONOCYTE COUNT 0.6 K/uL (0-0.8); NEUTROPHIL COUNT 10.3 K/uL (1.8-6.4); NRBC (%) 0.2 /100 WBC (0-0); PLATELET COUNT 152 K/uL (156-360); RBC DIS.WIDTH-CV 14.8 % (11.8-14.6); RBC DIS.WIDTH-SD 52.4 % (39-53); RED BLOOD COUNT 3.51 M/uL (4.00-5.50); WHITE BLOOD COUNT 11.8 K/uL (4.1-10.2)
[2017-02-10 08:27] VITALS: BP 153/67
[2017-02-10 08:27] LABS: ANION GAP 11 MEQ/L (2-14); CHLORIDE 98 MEQ/L (99-109); GFR ESTIMATE (CALCULATED) > 59 mL/min/; GLUCOSE 249 mg/dL (70-99); MAGNESIUM 2.2 mg/dl (1.3-2.7); SAMPLE HEMOLYSIS CHECK 0; SAMPLE ICTERIC CHECK 0; SAMPLE LIPEMIA CHECK 0; SODIUM 143 MEQ/L (136-147); UREA NITROGEN (BUN) 29 mg/dL (9-23)
[2017-02-10 08:30] LABS: INTER. NORMALIZED RATIO 2.5; PROTHROMBIN TIME 26.1 (9.2-11.2)
[2017-02-10 15:53] VITALS: BP 156/84
[2017-02-11 00:52] VITALS: BP 162/74
[2017-02-12 01:31] VITALS: BP 0/0
== END 2017-02-12 20:26 | DRG 189 ==
LOC: EME 12:32 → 5EAST 16:07 → 4WEST 16:07 → 5SOUTH 16:07 → 5EAST 16:07 → EDOF 16:07 → 5SOUTH 18:00 → 4WEST 02-06 10:19 → 5EAST 02-09 08:12
PROVIDERS: Emergency Medicine; Hospitalist; Internal Medicine; Internal Medicine Nephrology; Nurse Practitioner Adult Health; Physician Assistant Medical
DX: J96.21 Acute and chronic respiratory failure with hypoxia (principal); J84.10 Pulmonary fibrosis, unspecified; J18.9 Pneumonia, unspecified organism; I48.2 Chronic atrial fibrillation; N39.0 Urinary tract infection, site not specified; J44.1 Chronic obstructive pulmonary disease with (acute) exacerbation; N13.2 Hydronephrosis with renal and ureteral calculous obstruction; I11.0 Hypertensive heart disease with heart failure; I50.9 Heart failure, unspecified; Z51.5 Encounter for palliative care; Z66 Do not resuscitate; Z99.81 Dependence on supplemental oxygen; E11.9 Type 2 diabetes mellitus without complications; N21.0 Calculus in bladder; I25.10 Atherosclerotic heart disease of native coronary artery without angina pectoris; E78.5 Hyperlipidemia, unspecified; F41.9 Anxiety disorder, unspecified; F32.9 Major depressive disorder, single episode, unspecified; R04.2 Hemoptysis; R00.0 Tachycardia, unspecified; R19.7 Diarrhea, unspecified; R45.1 Restlessness and agitation; Z95.2 Presence of prosthetic heart valve; Z79.01 Long term (current) use of anticoagulants; Z79.4 Long term (current) use of insulin; Z79.82 Long term (current) use of aspirin; Z79.84 Long term (current) use of oral hypoglycemic drugs; Z82.49 Family history of ischemic heart disease and other diseases of the circulatory system; Z87.891 Personal history of nicotine dependence
CPT/HCPCS: 36600; 71010; 74176; 80048; 80048 91; 80053; 80202; 81003; 82565; 82803; 82948; 83605; 83735; 83880; 84100; 84484; 84520; 85025; 85027; 85610; 87040; 87077; 87086; 87186; 87493; 87641; 93005; 93306; 94640; 94640 76; 94760; 94799; 99202; 99281; 99285; J0456; J0696; J1160; J1815; J1940; J2060; J2270; J2543; J2920; J2930; J3370; J7030; J7050; J7120; J7512; S0028